=== PATIENT | female | born 1955 | race Hispanic/Latino ===

== ENCOUNTER → 2019-06-24 | Outpatient (CLI) | payer OTHER | END | disposition home or self-care (01) | LOC: OIH 12:57 | PROVIDERS: ATTEND Internal Medicine | DX: S93.144A Subluxation of metatarsophalangeal joint of right lesser toe(s), initial encounter (principal); S93.145A Subluxation of metatarsophalangeal joint of left lesser toe(s), initial encounter; M79.89 Other specified soft tissue disorders; M06.4 Inflammatory polyarthropathy; X58.XXXA Exposure to other specified factors, initial encounter; Y93.89 Activity, other specified; Y92.89 Other specified places as the place of occurrence of the external cause; Y99.8 Other external cause status | CPT/HCPCS: 73130; 73630 ==